=== PATIENT | male | born 1985 | race Hispanic/Latino ===

== ENCOUNTER → 2018-09-03 14:07 | Outpatient (CLI) | payer OTHER, SELFPAY ==
--- NOTE | 2018-09-03 | DI.CT.S_ITS ---
PROCEDURE: CT LE LT W CON INDICATIONS: Unspecified injury of left foot, initial encounter TECHNIQUE: Noncontrast 1-1.5 mm axial sections acquired from above the tibiotalar joint to the bottom of the calcaneus, with coronal and sagittal reformats. COMPARISON: None. FINDINGS: Image quality: Excellent. Bones: No fracture is seen. Note is made of a small area of focal sclerosis involving the superior medial border of the cuboid bone and the adjacent corresponding inferior lateral border of the navicular bone. These are within several millimeters of each other, and may represent sequela of prior impaction injury given the corresponding sclerosis and a slight degree of irregularity along the cortical border of the cuboid portion of this finding. Areas of sclerosis measure approximately 8 mm in maximal dimension. The slight cortical irregularity at the upper border of the cuboid bone is only 1 mm in maximal depression. Soft tissues: No hematoma found, no foreign body seen, no inflammation within soft tissues identified. 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 There is an history of prior injury. With reference to the the appearance discussed above the injury presumably would be long-standing, and the source of persistent pain after trauma is not identified. Alignment in the area of subtle abnormality discussed above is normal. Dictated by: Anton Nguyen M.D. on 09/03/2018 at 15:30 Approved by: Anton Nguyen M.D. on 09/03/2018 at 15:39
== END ==
PROVIDERS: Visit Provider Podiatrist
DX: S99.922A Unspecified injury of left foot, initial encounter (principal); M79.672 Pain in left foot
CPT/HCPCS: 73700

== ENCOUNTER → 2019-01-08 13:34 | Outpatient (CLI) | payer OTHER, SELFPAY ==
--- NOTE | 2019-01-08 | DI.ECHO.S_ITS ---
[facility] +---------+ : : [address] : : : [place], [place] : : : : [id number] : : : : Phone: [phone]+ Echocardiogram Report + + :Name: WILMER HERRERA Study Date: 01/08/2019 Height: 66 in : :[facility] Exam Location: IS Weight: 170 lb : : Gender: Male BSA: 1.9 m2 : :: 1985 Age: 33 yrs BP: 110/78 mmHg: :Reason For Study: Palpitations : : Performed By: Bria Page : :Referring: [email or web address] : + + Interpretation Summary 1) Normal left ventricular thickness and size with low normal systolic function (EF 50-55%). 2) Normal right ventricular size and function. 3) No significant valvular abnormalities. 4) No prior Echo available for comparison. Procedure: A two-dimensional transthoracic echocardiogram with color flow and Doppler was performed. The study quality was technically good. There is no prior echocardiogram noted for this patient. The patient was in normal sinus rhythm during the exam. Left Ventricle: The left ventricle is normal in size, wall thickness, and systolic function without any focal wall motion abnormalities. The ejection fraction is estimated to be 50-55%. Diastolic parameters suggest probable normal left ventricular diastolic function and normal filling pressures. Right Ventricle: The right ventricle is normal in size and function. Atria: Both atria are normal in size. There is no Doppler evidence for an interatrial shunt. Mitral Valve: The mitral valve is normal in structure and function. There is no mitral regurgitation noted. Aortic Valve: The aortic valve is trileaflet. The aortic valve opens well. There is no aortic valve stenosis. No aortic regurgitation is present. Tricuspid Valve: The tricuspid valve is normal in structure and function. There is trace tricuspid regurgitation. The right ventricular systolic pressure is estimated to be at least 10 mmHg based on an estimated right atrial pressure of 3 mm Hg. Pulmonic Valve: The pulmonic valve is not well seen, but is grossly normal. There is trace pulmonic regurgitation. Great Vessels: The aortic root is normal size. The ascending aorta is normal in size. The aortic arch is normal in size. The pulmonary artery is not well visualized, but is probably normal size. The IVC is of normal diameter and collapses greater than 50% with a sniff. This suggests a low right atrial pressure of 3 mm Hg. Pericardium/ Pleura There is no pericardial effusion. There is no pleural effusion. MMode/2D Measurements & Calculations LVIDd: 4.7 cm LVOT diam: 2.3 cm LVIDs: 3.1 cm Ao root diam: 3.2 cm FS: 34.2 % asc Aorta Diam: 2.8 cm EPSS: 0.00 cm Ao Arch Diam (Prox Trans): 2.5 cm IVSd: 0.78 cm LVPWd: 0.89 cm LV han. diameter/BSA (cm/m^2): 2.5 LV sys. diameter/BSA (cm/m^2): 1.6 LA A2 area: 20.0 cm2 RA long axis: 4.3 cm LA A4 area: 18.6 cm2 RA area: 14.4 cm2 LA length (vol): 5.1 cm RA vol: 41.0 ml LA vol: 61.9 ml RA : 22.0 ml/m2 LA vol index: 33.2 ml/m2 IVC diam: 1.8 cm RVD1 (basal): 3.8 cm TAPSE: 2.3 cm Doppler Measurements & Calculations Ao V2 max: 95.0 cm/sec LVOT Max Vic: 84.6 cm/sec Ao V2 mean: 68.6 cm/sec LV V1 max P.9 mmHg Ao max P.6 mmHg LV V1 VTI: 15.0 cm Ao mean P.0 mmHg CAREN(I,D): 3.3 cm2 Ao V2 VTI: 19.0 cm CAREN(V,D): 3.8 cm2 sev ratio: 0.79 CAREN indexed to BSA (cm^2/m^2): 1.8 MV E max vic: 71.5 cm/sec TR max vic: 135.4 cm/sec MV A max vic: 39.3 cm/sec TR max P.3 mmHg MV E/A: 1.8 PA V2 max: 78.8 cm/sec Med Peak E' Vic: 10.6 cm/sec PA V2 mean: 60.5 cm/sec E/E' med: 6.8 PA mean P.6 mmHg Lat Peak E' Vic: 16.9 cm/sec PA Accel Time: 0.16 sec E/E' lat: 4.2 E/e' average: 5.5 MV dec time: 0.15 sec MV P1/2t: 44.0 msec MV P1/2t max vic: 72.1 cm/sec SV(LVOT): 63.1 ml MVA(P1/2t): 5.0 cm2 Reading Physician:04:33 PM
== END ==
DX: R00.2 Palpitations (principal)
CPT/HCPCS: 93306